=== PATIENT | female | born 1965 | race Caucasian/White ===

== ENCOUNTER → 2024-07-14 | Outpatient (CLI) | payer OTHER, SELFPAY ==
--- NOTE | 2024-07-14 08:00 | XR_ITS ---
Examination: Screening digital mammography, bilateral Computer aided detection 3-D breast Tomosynthesis, bilateral Date and time of exam: July 06, 2024 0817 hours No priors available for comparison Indication: Screening Technique: Nonmagnified MLO, CC views of the breasts to been obtained, reconstructed from 3-D Tomosynthesis images. R2 computer aided detection program utilized for evaluation of suspicious masses and/or abnormal calcifications. 3-D Tomosynthesis images obtained. Findings: The breasts are heterogeneously dense, which may obscure small masses Circumscribed 10 mm oval mass 12:00 position right breast 12 mm oval mass lobular margins nipple level right breast 3 mm circumscribed nodule upper outer left breast Impression: BI-RADS Category 0: Incomplete: Need additional imaging evaluation Recommend follow-up spot tomographic views 10 mm nodule 12:00 position right breast, 12 mm oval mass nipple level right breast, 3 mm circumscribed nodule upper outer left breast Recommend bilateral breast sonography follow-up to complete the workup
== END | disposition home or self-care (01) ==
LOC: CDIM 08:11
PROVIDERS: PCP Nurse Practitioner Family; Referring Provider Nurse Practitioner Family; Visit Provider Nurse Practitioner Family
DX: Z12.31 Encounter for screening mammogram for malignant neoplasm of breast (principal); N63.15 Unspecified lump in the right breast, overlapping quadrants; N63.21 Unspecified lump in the left breast, upper outer quadrant
CPT/HCPCS: 77063; 77067

== ENCOUNTER → 2024-08-25 | Outpatient (CLI) | payer OTHER, SELFPAY ==
--- NOTE | 2024-08-25 07:45 | XR_ITS ---
Examination: Breast ultrasound complete, bilateral Date and time of exam: August 25, 2024 0736 hrs. Indications: Mammogram the 2024 10 mm nodule 12:00 position right breast 12 mm oval mass nipple level, left breast 3 mm nodule Technique: Real-time grayscale ultrasonographic imaging bilateral breasts, including all 4 quadrants as well as nipple retroareolar and axillary regions. Findings: Sonographic images right breast 12:00 circumscribed oval mass 14 x 13 mm 8:00 cyst 13 x 12 mm Sonographic images left breast 12:00 cyst Impression: BI-RADS Category 3: Probably benign findings One continued 6 month right breast sonogram follow-up is needed to document stability of 12:00 nodule right breast
--- NOTE | 2024-08-25 08:45 | XR_ITS ---
Examination: Diagnostic digital mammography, bilateral Computer aided detection 3-D breast Tomosynthesis, bilateral Date and time of exam: 1125, 8:27 AM Comparisons: 07/14/2024 Indications:Further evaluation of bilateral abnormality seen on recent screening exam. Technique: Nonmagnified MLO, CC views of the breasts to been obtained, reconstructed from 3-D Tomosynthesis images. R2 computer aided detection program utilized for evaluation of suspicious masses and/or abnormal calcifications. 3-D Tomosynthesis images obtained. Findings: The breasts are heterogeneously dense, which may obscure small masses. Grouped amorphous calcifications left upper outer quadrant middle depth. Multiple benign-appearing oval circumscribed masses seen bilaterally. Impression: Grouped amorphous calcifications left breast upper outer quadrant represent a suspicious abnormality. Left breast stereotactic biopsy is recommended. Otherwise multiple benign-appearing oval circumscribed masses bilaterally. BI-RADS category 4: Suspicious abnormality, biopsy recommended
== END | disposition home or self-care (01) ==
LOC: CDIM 07:23
PROVIDERS: PCP Family Medicine; Referring Provider Family Medicine; Visit Provider Family Medicine
DX: R92.343 Mammographic extreme density, bilateral breasts (principal); R92.1 Mammographic calcification found on diagnostic imaging of breast; N63.15 Unspecified lump in the right breast, overlapping quadrants
CPT/HCPCS: 76641; 77062; 77066; G0279